=== PATIENT | female | born 1975 | race Caucasian/White ===

== ENCOUNTER → 2019-07-17 | Outpatient (CLI) | payer SELFPAY ==
[2019-07-17 16:18] LABS: MEAN CELL VOLUME 69 fl (80.0-100.0); MEAN CORPUSCULAR HGB CONC 29 g/dl (33.0-37.0); MEAN PLATELET VOLUME 10.6 fl (7.4-10.4); PLATELET COUNT 223 K/mm3 (130-400); RED BLOOD COUNT 4.38 M/mm3 (4.10-5.30); REDCELL DISTRIBUTION WIDTH-CV 15.9 % (11.5-14.5)
[2019-07-17 16:25] LABS: HEMATOCRIT 30.4 % (37.0-47.0); HEMOGLOBIN 8.7 g/dl (12.5-16.0); MEAN CORPUSCULAR HEMOGLOBIN 20 pg (27.0-31.0)
[2019-07-17 16:43] LABS: ERYTHROCYTE SEDIMENTATION RATE 22 mm/hr (0-20)
== END ==
LOC: COL.LAB 15:58
PROVIDERS: Internal Medicine
DX: M19.049 Primary osteoarthritis, unspecified hand (principal)

== ENCOUNTER → 2019-07-24 | Outpatient (CLI) | payer SELFPAY | LOC: COL.LAB 15:58 | DX: D50.8 Other iron deficiency anemias (principal) ==

== ENCOUNTER → 2019-08-01 | Outpatient (CLI) | payer SELFPAY | LOC: COL.LAB 12:13 | DX: D50.9 Iron deficiency anemia, unspecified (principal) ==

== ENCOUNTER → 2021-07-26 | Outpatient (CLI) | payer SELFPAY | LOC: COL.RAD 14:49 | DX: N81.10 Cystocele, unspecified (principal); N83.02 Follicular cyst of left ovary; N83.01 Follicular cyst of right ovary ==

== ENCOUNTER → 2021-09-14 | Outpatient (CLI) | payer OTHER | LOC: MC.RAD 15:45 | DX: Z12.31 Encounter for screening mammogram for malignant neoplasm of breast (principal) ==